=== PATIENT | male | born 1980 | race Two or more races ===

== ENCOUNTER 2016-08-02 09:49 | Emergency (ER) | payer MEDICAID ==
[~2016-08-02] VITALS: Wt 79.0 kg
[2016-08-02] MEDS ORDERED: ASPIRIN 81 MG TAB PO STA (14:44)
[2016-08-02 14:47] LABS: ADD SCAN DIFF NO
--- NOTE | 2016-08-02 14:47 | ERD ---
ER Documentation Chief Complaint Date/Time DATE: 08/02/16 TIME: 14:44 Chief Complaint CHEST PAIN X 2 DAYS HPI Patient is a 35-year-old male who presents with gradual onset constant, dull/ throbbing, left-sided chest pain that has been constant since last night. Patient reports chest congestion pain with coughing and deep inspiration. Had one episode of vomiting. Denies fever, but felt slightly diaphoretic earlier today. Denies mucus production or hemoptysis. No recent surgery, no history of previous blood clot. Denies trauma ROS All systems reviewed and are negative except as per history of present illness. Medications Home Meds Active Scripts Acetaminophen* (Tylophen*) 500 Mg Capsule, 2 CAP PO Q8H Y for PAIN AND OR ELEVATED TEMP, #20 CAP Prov:NAGI CORDERO 08/02/16 Cyclobenzaprine Hcl* (Cyclobenzaprine Hcl*) 10 Mg Tablet, 10 MG PO Q8 Y for PAIN , #21 TAB Prov:NAGI CORDERO 08/02/16 Allergies Allergies: Coded Allergies: No Known Allergy (Unverified , 08/02/16) PMhx/Soc Past medical history: Denies diabetes or hypertension Past surgical history: Denies Social history: Recent heavy alcohol use. Smokes 2-3 cigarettes per day FmHx Family History: No coronary disease, No diabetes Physical Exam Vitals Vital Signs Date Time Temp Pulse Resp B/P Pulse Ox O2 Delivery O2 Flow Rate FiO2 08/02/16 17:50 98.1 88 18 148/91 99 Room Air 08/02/16 16:00 89 18 151/97 99 Room Air 08/02/16 15:00 Nasal Cannula 2 08/02/16 15:00 90 18 144/105 99 Room Air 08/02/16 09:57 98.0 87 18 174/109 87 Physical Exam Const: Alert, oriented, no acute distress Head: Atraumatic Eyes: Normal Conjunctiva ENT: Normal External Ears, Nose and Mouth. Neck: Full range of motion. No JVD no meningismus. Resp: Clear to auscultation bilaterally, no wheezes, no rales, no rhonchi Cardio: Regular rate and rhythm, no murmurs. Exquisite tenderness to left anterior chest wall. No rash Abd: Soft, non tender, non distended. No guarding or rebound. Normal bowel sounds Skin: No petechiae or rashes Back: No midline or flank tenderness Ext: No cyanosis, or edema Neur: Awake and alert Psych: Normal Mood and Affect Result Diagram: 08/02/16 1440 08/02/16 1440 Results 24 hrs Laboratory Tests Test 08/02/16 14:40 08/02/16 16:30 08/02/16 16:50 Activated Partial Thromboplast Time 28.6Sec Anion Gap 20 Basophils # 0.110^3/ul Basophils % 0.8% Blood Urea Nitrogen 7mg/dl Calcium Level 10.0mg/dl Carbon Dioxide Level 31mmol/L Chloride Level 98mmol/L Creatinine 0.71mg/dl Eosinophils # 0.110^3/ul Eosinophils % 0.8% Glucose Level 108mg/dl Hematocrit 43.9% Hemoglobin 14.2g/dl INR International Normalized Ratio 1.02 Lymphocytes # 1.710^3/ul Lymphocytes % 17.6% Mean Corpuscular Hemoglobin 33.6pg Mean Corpuscular Hemoglobin Concent 32.3g/dl Mean Corpuscular Volume 104.0fl Mean Platelet Volume 10.9fl Monocytes # 0.710^3/ul Monocytes % 6.7% Neutrophils # 7.210^3/ul Neutrophils % 73.5% Nucleated Red Blood Cells # 0.010^3/ul Nucleated Red Blood Cells % 0.0/100WBC Platelet Count 94960^3/UL Potassium Level 4.5mmol/L Prothrombin Time 13.4Sec Prothrombin Time Ratio 1.0 Red Blood Count 4.2210^6/ul Red Cell Distribution Width 11.7% Sodium Level 144mmol/L Troponin I < 0.012ng/ml White Blood Count 9.810^3/ul Lactic Acid Level 1.2mmol/L Urine Bilirubin NEGATIVE Urine Clarity CLEAR Urine Color LT. YELLOW Urine Glucose NEGATIVE% Urine Hemoglobin NEGATIVE Urine Ketones NEGATIVE Urine Leukocyte Esterase NEGATIVE Urine Microscopic RBC 0-2/HPF Urine Microscopic WBC 5-10/HPF Urine Nitrite NEGATIVE Urine Specific [place] 1.020 Urine Squamous Epithelial Cells RARE Urine Total Protein 2+ Urine Urobilinogen 1.0 E.U./dL Urine pH 7.0 Current Medications Medications (Trade) Dose Ordered Sig/Elba Route PRN Reason Start Time Stop Time Status Last Admin Dose Admin Aspirin 162 mg 162 mg ONCE STAT PO 08/02/16 14:44 08/02/16 14:45 DC 08/02/16 15:10 Sodium Chloride (NS) 1,000 ml @ 1,000 mls/hr Q1H ONCE IV 08/02/16 16:30 08/02/16 17:29 DC 08/02/16 16:29 Procedures/MDM EKG: Time 1006, rate 91, normal sinus rhythm, right axis deviation, left posterior fascicular block, no ischemic ST-T wave changes, no ectopy Chest x-ray: No acute disease. MDM: Patient with left-sided chest pain that is constant for greater than 12 hours. Patient has exquisite chest wall tenderness on exam that completely reproduces pain. Patient has no known cardiac risk factors except for mild smoking. No family history. PERC negative (initial low O2 sat appears to be spurious, as all subsequent O2 sats are normal on room air. EKG nonischemic and troponin negative. No signs or symptoms concerning for aortic dissection. Patient reports having heavy alcohol use last night, and may have element of dehydration contributing to musculoskeletal pain. Patient has slightly elevated blood pressure that is 141/96 at time of discharge. Advise follow-up with PMD for recheck in 2-3 days. Patient advised to return to ER for any new or worsening symptoms. Departure Diagnosis: Primary Impression: Musculoskeletal chest pain Additional Impression: Elevated blood pressure reading Condition: NAGI Kimbrough Aug 02, 2016 14:47
[2016-08-02 14:51] LABS: BASOPHIL # 0.1 10^3/ul (0.0-0.1); BASOPHILS % 0.8 % (0.0-2.0); EOSINOPHILS # 0.1 10^3/ul (0.0-0.5); EOSINOPHILS % 0.8 % (0.0-7.0); HEMATOCRIT 43.9 % (42.0-52.0); HEMOGLOBIN 14.2 g/dl (14.0-18.0); LYMPHOCYTES # 1.7 10^3/ul (0.8-2.9); LYMPHOCYTES % 17.6 % (15.0-51.0); MEAN CORPUSCULAR HEMOGLOBIN 33.6 pg (29.0-33.0); MEAN CORPUSCULAR HGB CONC 32.3 g/dl (32.0-37.0); MEAN PLATELET VOLUME 10.9 fl (7.4-10.4); MONOCYTE # 0.7 10^3/ul (0.3-0.9); MONOCYTES % 6.7 % (0.0-11.0); NEUTROPHIL # 7.2 10^3/ul (1.6-7.5); NEUTROPHILS % 73.5 % (39.0-77.0); PLATELET COUNT 213 10^3/UL (140-415); RED BLOOD COUNT 4.22 10^6/ul (4.70-6.10); RED CELL DISTRIBUTION WIDTH 11.7 % (11.5-14.5); WHITE BLOOD COUNT 9.8 10^3/ul (4.8-10.8)
[2016-08-02 15:00] LABS: CHLORIDE 98 mmol/L (97-110); INR 1.02; PROTIME 13.4 Sec (12.2-14.2)
[2016-08-02 15:01] LABS: PARTIAL THROMBOPLASTIN TIME 28.6 Sec (25.0-35.0); POTASSIUM 4.5 mmol/L (3.5-5.1); SODIUM 144 mmol/L (135-144)
[2016-08-02 15:03] LABS: CREATININE 0.71 mg/dl (0.61-1.24)
[2016-08-02 15:04] LABS: ANION GAP 20 (8-16); BLOOD UREA NITROGEN 7 mg/dl (7-20); CARBON DIOXIDE 31 mmol/L (21-31); GLUCOSE 108 mg/dl (70-220)
--- NOTE | 2016-08-02 15:10 | RADRPT ---
PROCEDURE: Chest Radiograph. CLINICAL INDICATION: Chest pain TECHNIQUE: Single frontal chest radiograph. COMPARISON: None available FINDINGS: The cardiomediastinal silhouette is within normal limits. No infiltrate or effusion is seen. Th e bones are intact. IMPRESSION: 1. Unremarkable chest radiograph. RPTAT: KK .Edmundo Kim MD, MD Date Time Electronically viewed and signed by .Edmundo Kim MD, on 08/02/2016 15:09 .B/
[2016-08-02 15:32] LABS: TROPONIN-I < 0.012 ng/ml (0.00-0.12)
[2016-08-02] MEDS ORDERED: SOD CHLORIDE 0.9% 1,000 ML IV ONE (16:30)
[2016-08-02 17:26] LABS: ADD UMIC YES; URINE BILIRUBIN (Dip) NEGATIVE (NEGATIVE); URINE BLOOD (Dip) NEGATIVE (NEGATIVE); URINE COLOR LT. YELLOW (YELLOW); URINE GLUCOSE (Dip) NEGATIVE (NEGATIVE); URINE KETONES (Dip) NEGATIVE (NEGATIVE); URINE LEUKOCYTE ESTERASE (Dip) NEGATIVE (NEGATIVE); URINE NITRITE (Dip) NEGATIVE (NEGATIVE); URINE TOTAL PROTEIN (Dip) 2+ (NEGATIVE); URINE UROBILINOGEN (Dip) 1.0 E.U./dL (0.1-1.0)
[2016-08-02 17:41] LABS: SQUAMOUS EPITHELIAL CELL,UR RARE; URINE RBCS 0-2 /HPF (0)
[2016-08-02] MEDS ORDERED: ACET500C5 PO (17:46)
[2016-08-02] MEDS ORDERED: CYCL-319 PO (17:46)
[2016-08-02 17:50] VITALS: BP 148/91; PULSE 88; RESP 18; TEMP 98.1
== END 2016-08-02 18:04 | disposition home or self-care (01) ==
LOC: E/R 09:49
DX: R07.9 Chest pain, unspecified (principal); F17.210 Nicotine dependence, cigarettes, uncomplicated; R03.0 Elevated blood-pressure reading, without diagnosis of hypertension
CPT/HCPCS: 36415; 71010; 80048; 81001; 83605; 84484; 85025; 85610; 85730; 93005; 96360; J7030; Z7502; Z7610; 81003

== ENCOUNTER 2016-11-01 03:00 | Emergency (ER) | payer BC, MEDICAID ==
[~2016-11-01] VITALS: Ht 167.6 cm; Wt 78.5 kg
[~2016-11-01 03:00] MED LIST: ACET500C5 PO; CYCL-319 PO
[2016-11-01 03:22] VITALS: Ht 167.6 cm; Wt 78.5 kg
[2016-11-01] MEDS ORDERED: ONDANSETRON (ODT) 4 MG TAB ODT STA (03:46)
[2016-11-01] MEDS ORDERED: DICYCLOMINE 10 MG CAP PO ONE (04:00)
--- NOTE | 2016-11-01 04:08 | ERD ---
ER Documentation Chief Complaint Date/Time DATE: 11/01/16 TIME: 04:02 Chief Complaint left upper abd pain X3 days w/ vomiting and diarrhea HPI 36-year-old male presents with emergency department for complaints of abdominal pain and vomiting and diarrhea started 3 days ago. Patient describes the pain as cramping, 4/10 scale, not better or worse with anything. Patient has been having chills but denies any fever. Patient does not have any blood in the stool or black stool. Patient does not have any blood in the vomit ROS All systems reviewed and are negative except as per history of present illness. Medications Home Meds Active Scripts Acetaminophen* (Tylophen*) 500 Mg Capsule, 2 CAP PO Q8H Y for PAIN AND OR ELEVATED TEMP, #20 CAP Prov:NAGI CORDERO 08/02/16 Cyclobenzaprine Hcl* (Cyclobenzaprine Hcl*) 10 Mg Tablet, 10 MG PO Q8 Y for PAIN , #21 TAB Prov:NAGI CORDERO 08/02/16 Allergies Allergies: Coded Allergies: No Known Allergy (Unverified , 08/02/16) PMhx/Soc History of Surgery: Yes (NASAL SURGERY ) Anesthesia Reaction: No Hx Neurological Disorder: No Hx Respiratory Disorders: No Hx Cardiac Disorders: No Hx Psychiatric Problems: No Hx Miscellaneous Medical Probl: No Hx Alcohol Use: Yes Hx Substance Use: No Hx Tobacco Use: Yes Smoking Status: Current every day smoker FmHx Family History: No coronary disease, No diabetes, No other Physical Exam Vitals Vital Signs Date Time Temp Pulse Resp B/P Pulse Ox O2 Delivery O2 Flow Rate FiO2 11/01/16 03:22 97.8 86 18 146/102 98 Physical Exam GENERAL: The patient is well developed and appropriate for usual state of health, in no apparent distress. CHEST: Clear to auscultation bilaterally. There are no rales, wheezes or rhonchi. HEART: Regular rate and rhythm. No murmurs, clicks, rubs or gallops. No S3 or S4. ABDOMEN: Soft, nontender and nondistended. Hyperactive bowel sounds. No rebound or guarding. No gross peritonitis. No gross organomegaly or masses. No Rasheed sign or McBurney point tenderness. BACK: No midline or flank tenderness. EXTREMITIES: Equal pulses bilaterally. There is no peripheral clubbing, cyanosis or edema. No focal swelling or erythema. Full range of motion. Grossly neurovascularly intact. NEURO: Alert and oriented. Cranial nerves 2-12 intact. Motor strength in all 4 extremities with 5/5 strength. Sensation grossly intact. Normal speech and gait. SKIN: There is no apparent rash or petechia. The skin is warm and dry. HEMATOLOGIC AND LYMPHATIC: There is no evidence of excessive bruising or lymphedema. No gross cervical, axillary, or inguinal lymphadenopathy. Result Diagram: 11/01/16 0355 11/01/16 0355 Results 24 hrs Laboratory Tests Test 11/01/16 03:55 White Blood Count 9.510^3/ul Red Blood Count 4.5910^6/ul Hemoglobin 15.4g/dl Hematocrit 46.5% Mean Corpuscular Volume 101.3fl Mean Corpuscular Hemoglobin 33.6pg Mean Corpuscular Hemoglobin Concent 33.1g/dl Red Cell Distribution Width 12.4% Platelet Count 05425^3/UL Mean Platelet Volume 12.2fl Neutrophils % 71.8% Lymphocytes % 17.8% Monocytes % 7.9% Eosinophils % 1.5% Basophils % 0.4% Nucleated Red Blood Cells % 0.0/100WBC Neutrophils # 6.810^3/ul Lymphocytes # 1.710^3/ul Monocytes # 0.810^3/ul Eosinophils # 0.110^3/ul Basophils # 0.010^3/ul Nucleated Red Blood Cells # 0.010^3/ul Sodium Level 140mmol/L Potassium Level 4.2mmol/L Chloride Level 103mmol/L Carbon Dioxide Level 25mmol/L Anion Gap 16 Blood Urea Nitrogen 5mg/dl Creatinine 0.79mg/dl Glucose Level 104mg/dl Calcium Level 9.6mg/dl Total Bilirubin 1.4mg/dl Direct Bilirubin 0.00mg/dl Indirect Bilirubin 1.4mg/dl Aspartate Amino Transf (AST/SGOT) 113IU/L Alanine Aminotransferase (ALT/SGPT) 146IU/L Alkaline Phosphatase 90IU/L Total Protein 8.6g/dl Albumin 5.1g/dl Globulin 3.50g/dl Albumin/Globulin Ratio 1.45 Lipase 178U/L Current Medications Medications (Trade) Dose Ordered Sig/Elba Route PRN Reason Start Time Stop Time Status Last Admin Dose Admin Ondansetron HCl (Zofran Odt) 4 mg ONCE STAT ODT 11/01/16 03:46 11/01/16 04:36 DC 11/01/16 04:01 Dicyclomine HCl (Bentyl) 20 mg ONCE ONCE PO 11/01/16 04:00 11/01/16 04:01 DC 11/01/16 04:01 Patient was given Zofran here in the emergency department. After treatment, patient was able to tolerate po fluids here in the emergency department without any vomiting. There is no signs and symptoms of dehydration. Bentyl was given here in emergency department. Procedures/MDM Medical Decision Making: Patient symptoms of abdominal pain vomiting and diarrhea most active consistent with viral gastroenteritis. There is low suspicion for abdominal emergencies at this time. Patients abdominal exam is normal at this time. Radiology exam is not indicated at this time. There is low suspicion for appendicitis, cholecystitis, abdominal aortic aneurysms or peritonitis at this time. There is low suspicion for sepsis. Patient appears well and is hemodynamically stable. Disposition: Home. Condition: Stable Prescription Zofran and Bentyl ibuprofen Instructions: Patient is advised to take medications as prescribed. Patient is advised to rest, increase fluid intake and do brat diet for next 1-2 days and progress as tolerated. Patient is advised that if symptoms are worse, severe abdominal pain, uncontrolled vomiting, high fever, severe flank pain, worst signs and symptoms, to return to the emergency department immediately. Otherwise, patient can follow up with primary care doctor in 5-7 days. Departure Diagnosis: Primary Impression: Viral gastroenteritis Condition: Stable Patient Instructions: Gastroenteritis, Viral (6Y-Adult) Additional Instructions: Patient is advised to take medications as prescribed. Patient is advised to rest , increase fluid intake and do brat diet for next 1-2 days and progress as tolerated. Patient is advised that if symptoms are worse, severe abdominal pain , uncontrolled vomiting, high fever, severe flank pain, worst signs and symptoms , to return to the emergency department immediately. Otherwise, patient can follow up with primary care doctor in 5-7 days. MEGAN TREJO NP Nov 01, 2016 04:08
[2016-11-01 04:14] LABS: ADD SCAN DIFF NO
[2016-11-01 04:16] LABS: BASOPHILS % 0.4 % (0.0-2.0); EOSINOPHILS # 0.1 10^3/ul (0.0-0.5); EOSINOPHILS % 1.5 % (0.0-7.0); HEMATOCRIT 46.5 % (42.0-52.0); HEMOGLOBIN 15.4 g/dl (14.0-18.0); LYMPHOCYTES # 1.7 10^3/ul (0.8-2.9); LYMPHOCYTES % 17.8 % (15.0-51.0); MEAN CORPUSCULAR HEMOGLOBIN 33.6 pg (29.0-33.0); MEAN CORPUSCULAR HGB CONC 33.1 g/dl (32.0-37.0); MEAN CORPUSCULAR VOLUME 101.3 fl (82.0-101.0); MEAN PLATELET VOLUME 12.2 fl (7.4-10.4); MONOCYTE # 0.8 10^3/ul (0.3-0.9); MONOCYTES % 7.9 % (0.0-11.0); NEUTROPHIL # 6.8 10^3/ul (1.6-7.5); NEUTROPHILS % 71.8 % (39.0-77.0); PLATELET COUNT 203 10^3/UL (140-415); RED BLOOD COUNT 4.59 10^6/ul (4.70-6.10); RED CELL DISTRIBUTION WIDTH 12.4 % (11.5-14.5); WHITE BLOOD COUNT 9.5 10^3/ul (4.8-10.8)
[2016-11-01 04:37] LABS: ALBUMIN 5.1 g/dl (3.3-4.9); ALBUMIN/GLOBULIN RATIO 1.45; BILIRUBIN,INDIRECT 1.4 mg/dl (0-1.1); BILIRUBIN,TOTAL 1.4 mg/dl (0.2-1.3); CALCIUM 9.6 mg/dl (8.4-10.2); CREATININE 0.79 mg/dl (0.61-1.24); POTASSIUM 4.2 mmol/L (3.5-5.1); TOTAL PROTEIN 8.6 g/dl (6.1-8.1)
[2016-11-01] MEDS ORDERED: ONDA4TAB14 PO (05:02)
[2016-11-01] MEDS ORDERED: IBUP-1542 PO (05:02)
[2016-11-01] MEDS ORDERED: DICY10CA60 PO (05:02)
[2016-11-01 05:23] VITALS: BP 139/101; PULSE 85; RESP 20; TEMP 98.5
== END 2016-11-01 05:24 | disposition home or self-care (01) ==
LOC: FTE 03:00
DX: A08.4 Viral intestinal infection, unspecified (principal); F17.210 Nicotine dependence, cigarettes, uncomplicated
CPT/HCPCS: 36415; 80053; 83690; 85025; Z7502; Z7610; 99284